=== PATIENT | female | born 1955 | race Caucasian/White ===

== ENCOUNTER 2020-04-05 08:34 | Outpatient (REF) | payer MEDICARE, SELFPAY ==
[2020-04-05 11:32] LABS: Glucose Urine UA NEG (NEG); Leukocyte Esterase Urine NEG (NEG); Nitrite Urine NEG (NEG); Specific Gravity - Urine 1.025 (1.005-1.025); Urine Blood TRACE (NEG); Urine Ketones NEG (NEG); Urine Protein NEG (NEG-TRACE)
[2020-04-05 11:33] LABS: Hematocrit 45.2 % (37-47); Hemoglobin 14.8 g/dl (12.0-16.0); Mean Corpuscular HGB Conc 32.7 g/dl (31.0-35.0); Mean Corpuscular Hemoglobin 31.7 pg (27.0-33.0); Mean Corpuscular Volume 96.8 fL (80-98); Mean Platelet Volume 11.2 fL (9.4-12.3); Platelet Count 275 X10*3/uL (160-400); Red Blood Count 4.67 X10*6/uL (4.20-5.50); Red Cell Distribution Width 13.1 % (11.0-16.0); White Blood Count 3.6 X10*3/uL (4.8-10.8)
[2020-04-05 11:34] LABS: Appearance Urine CLEAR; Color Urine YELLOW
[2020-04-05 11:45] LABS: Bacteria Urine TRACE /LPF; Mucus Urine 1+ /LPF; Squamous Epithelial Cell Urine 2+ /LPF
[2020-04-05 12:13] LABS: Alanine Aminotransferase 19 U/L (0-31); Albumin Level 4.3 g/dL (3.5-5.0); Alkaline Phosphatase 98 U/L (39-117); Anion Gap 13 (12-20); Aspartate Amino Transferase 19 U/L (5-31); Bilirubin Total 0.6 mg/dL (0.0-1.0); Blood Urea Nitrogen 14 mg/dL (9-16); Calcium 8.9 mg/dL (8.4-10.2); Carbon Dioxide 25 mmol/L (22-29); Chloride 107 mmol/L (96-108); Cholesterol 216 mg/dL; Estimated Glomerular Filt Rate > 60; Glucose Fasting 81 mg/dL (60-99); HDL Cholesterol 68 mg/dL; LDL Cholesterol Calculated 135 mg/dl; Potassium 4.9 mmol/l (3.3-5.1); Sodium 140 mmol/L (135-145); Total Protein 6.5 g/dL (6.5-8.0); Triglycerides 65 mg/dL
[2020-04-05 12:42] LABS: Thyroid Stimulating Hormone 1.19 uIU/mL (0.32-4.0)
== END 2020-04-05 08:35 | disposition home or self-care (01) ==
LOC: HO.HMGCLDS 08:34
PROVIDERS: PCP Internal Medicine; Visit Provider Internal Medicine
DX: E78.5 Hyperlipidemia, unspecified (principal); I10 Essential (primary) hypertension
CPT/HCPCS: 36415; 80053; 80061; 81001; 84443; 85027

== ENCOUNTER 2021-03-30 06:19 | Outpatient (REF) | payer MEDICARE, SELFPAY ==
[2021-03-30 11:28] LABS: Hematocrit 44.7 % (37.0-47.0); Mean Corpuscular HGB Conc 33.6 g/dl (31.0-35.0); Mean Corpuscular Hemoglobin 31.9 pg (27.0-33.0); Mean Corpuscular Volume 95.1 fL (80.0-98.0); Mean Platelet Volume 12.3 fL (9.4-12.3); Platelet Count 256 X10*3/uL (160-400); Red Cell Distribution Width 12.3 % (11.0-16.0); White Blood Count 3.3 X10*3/uL (4.8-10.8)
[2021-03-30 11:55] LABS: Alanine Aminotransferase 17 U/L (0-31); Albumin Level 4.4 g/dL (3.5-5.0); Alkaline Phosphatase 100 U/L (39-117); Anion Gap 11 (12-20); Aspartate Amino Transferase 17 U/L (5-31); Bilirubin Total 0.8 mg/dL (0.0-1.0); Blood Urea Nitrogen 13 mg/dL (9-16); Carbon Dioxide 26 mmol/L (22-29); Chloride 110 mmol/L (96-108); Cholesterol 211 mg/dL; Estimated Glomerular Filt Rate > 60; Glucose Fasting 93 mg/dL (60-99); HDL Cholesterol 56 mg/dL; LDL Cholesterol Calculated 139 mg/dl; Potassium 4.1 mmol/L (3.3-5.1); Sodium 143 mmol/L (135-145); Total Protein 6.5 g/dL (6.5-8.0); Triglycerides 83 mg/dL
[2021-03-30 12:03] LABS: TSH reflex Free T4 2.43 uIU/mL (0.32-4.0); Vitamin D 25-OH Total 39.2 ng/mL (>30)
== END 2021-03-30 06:20 | disposition home or self-care (01) ==
LOC: HO.HMGCLDS 06:19
PROVIDERS: PCP Internal Medicine; Visit Provider Internal Medicine
DX: Z00.00 Encounter for general adult medical examination without abnormal findings (principal); E78.5 Hyperlipidemia, unspecified; I10 Essential (primary) hypertension
CPT/HCPCS: 36415; 80053; 80061; 82306; 84443; 85027

== ENCOUNTER 2021-12-25 07:48 | Outpatient (REF) | payer MEDICARE, SELFPAY ==
[2021-12-25 11:50] LABS: Alanine Aminotransferase 108 U/L (0-31); Albumin Level 4.1 g/dL (3.5-5.0); Alkaline Phosphatase 124 U/L (39-117); Anion Gap 15 (12-20); Aspartate Amino Transferase 36 U/L (5-31); Bilirubin Total 0.5 mg/dL (0.0-1.0); Blood Urea Nitrogen 12 mg/dL (9-16); Calcium 9.2 mg/dL (8.4-10.2); Carbon Dioxide 24 mmol/L (22-29); Chloride 111 mmol/L (96-108); Cholesterol 180 mg/dL; Estimated Glomerular Filt Rate > 60; Glucose Fasting 96 mg/dL (60-99); HDL Cholesterol 62 mg/dL; LDL Cholesterol Calculated 100 mg/dl; Potassium 4.7 mmol/L (3.3-5.1); Sodium 145 mmol/L (135-145); Total Protein 6.5 g/dL (6.5-8.0); Triglycerides 91 mg/dL
== END 2021-12-25 07:49 | disposition home or self-care (01) ==
LOC: HO.HMGCLDS 07:48
PROVIDERS: PCP Internal Medicine; Visit Provider Internal Medicine
DX: Z00.00 Encounter for general adult medical examination without abnormal findings (principal); E78.5 Hyperlipidemia, unspecified; I10 Essential (primary) hypertension
CPT/HCPCS: 36415; 80053; 80061

== ENCOUNTER 2023-03-08 10:29 | Outpatient (AMB) | payer MEDICARE, SELFPAY ==
[2023-03-08 10:31] VITALS: BP 130/92; PULSE 63; O2SAT 96; BMI 24.5
--- NOTE | 2023-03-08 10:31 | A.OFFPC_ITS ---
Vital Signs 03/08/23 10:31 Height 5 ft 4 in Weight 143 lb BMI 24.5 BP 130/92 H Blood Pressure Location Lt brachial Position Sitting Pulse 63 Pulse Source Pulse Oximeter Pulse Oximetry (%) 96 Oxygen Delivery Method Room Air Intake Visit Reasons: PE. Intake Note: Pt is here today for PE. Allergies doxycycline Allergy (Unknown, Verified 03/08/23 10:35) Rash egg Allergy (Unknown, Verified 03/08/23 10:35) very ill erythromycin base Allergy (Unknown, Verified 03/08/23 10:35) Rash levofloxacin [Levaquin] Allergy (Unknown, Verified 03/08/23 10:35) swelling in hands penicillin V Allergy (Unknown, Verified 03/08/23 10:35) Rash tetracycline Allergy (Unknown, Verified 03/08/23 10:35) Rash amlodipine Adverse Reaction (Intermediate, Verified 03/08/23 10:35) lightheadness, swelling lisinopril Adverse Reaction (Intermediate, Verified 03/08/23 10:35) lightheadness pravastatin Adverse Reaction (Intermediate, Verified 03/08/23 10:35) myalgia ezetimibe [From Zetia] Adverse Reaction (Verified 03/08/23 10:50) lightheaded Medication List - Last Reconciled 03/08/23 by Celeste Mary MD estradiol 0.01%(0.1mg/gram) grams vaginal olmesartan 10 mg (2 x 5 mg) PO DAILY Tobacco use date assessed: 03/08/23 Fall risk assessment: No Falls in past year Last assessed Fall Risk: 03/08/23 Dental Screening Dental Screen Date: 03/08/23 Did you have a dental visit in the last 12 months?: Yes Did you have a dental problem in the last 6 months where you did not have access to dental care?: No Was dental information given to patient?: Patient has dentist HPI PE. HPI Details Patient presents for physical. [facility] Medical History (Updated 03/08/23 @ 13:13 by Celeste Mary MD) Postmenopausal Annual physical exam Back pain Colonoscopy refused Endometrial cancer Hx of mammogram Hyperlipidemia Hypertension Surgical History History of lumpectomy Family History Brother HTN (hypertension) Sister HTN (hypertension) Father HTN (hypertension) Mother HTN (hypertension) Social History Housing: House Alcohol intake: current Alcohol intake frequency: a few times a month Patient Tobacco Use Status: Never used Tobacco e-Cigarette/Vaping Use: Never Used Second Hand Smoke Exposure: No Current occupational status: employed Cognitive needs: No Hearing needs: No Vision needs: No Questionnaire PHQ-9 Over the last 2 weeks, how often have you been bothered by any of the following problems? 1. Little interest or pleasure in doing things: not at all 2. Feeling down, depressed, or hopeless: not at all 3. Trouble falling or staying asleep, or sleeping too much: not at all 4. Feeling tired or having little energy: not at all 5. Poor appetite or overeating: not at all 6. Feeling bad about yourself - or that you are a failure or have let yourself or your family down: not at all 7. Trouble concentrating on things, such as reading the newspaper or watching television: not at all 8. Moving or speaking so slowly that other people could have noticed. Or the opposite - being so fidgety or restless that you have been moving around a lot more than usual: not at all 9. Thoughts that you would be better off or of hurting yourself in some way: not at all Total score: 0 Depression Screening Interpretation: Negative Depression Screening Done: Yes Source: Developed by Drs. Khoa Diaz, Linda Ferguson, Teo Seo and colleagues, with an educational santana from [employer]. Thrive Questionnaire Date Thrive assessed: 03/08/23 I am a: Patient What is your living situation today?: I have a steady place to live Within the past 12 months, did the food you bought not last and you didn't have the money to get more?: Never true Within the past 12 months, did you worry whether your food would run out before you got money to buy more?: Never true Do you have trouble paying for medicines?: No Do you have trouble getting transportation to medical appointments?: No Do you have trouble paying your heating and electricity bill?: No Do you have trouble taking care of your child, family member or friend?: No Do you have trouble with day-to-day activities such as bathing, preparing meals, shopping, managing finances, etc.?: No Are you currently unemployed and looking for a job?: No Are you interested in more education?: No Please select the resources that you would like help with: None Currently or been in a relationship where the following occur: no concerns reported AUDIT C Alcohol Use Questionnaire (AUDIT-C) 1. How often do you have a drink containing alcohol?: Monthly or less 2. How many drinks containing alcohol do you have on a typical day when you are drinking?: 1 or 2 3. How often do you have six or more drinks on one occasion?: Never Total Score: 1 JUDITH-7 AMB Questionnaire JUDITH-7 Date JUDITH - 7 assessed: 03/08/23 Feeling nervous, anxious, or on edge: 0 = Not at all Not being able to stop or control worryin = Not at all Worrying too much about different things: 0 = Not at all Trouble relaxin = Not at all Being so restless that it is hard to sit still: 0 = Not at all Becoming easily annoyed or irritable: 0 = Not at all Feeling afraid as if something awful might happen: 0 = Not at all Total JUDITH-7 score (0-4 normal; 5-9 mild; 10-14 moderate; 15-21 severe): 0 Source: Developed by Drs. Khoa Diaz, Linda Ferguson, Teo Seo and colleagues, with an educational santana from [employer]. Review of Systems Const All systems reviewed & are unremarkable except as noted in HPI and below Reports no additional complaints Eyes Reports no additional complaints ENT Reports no additional complaints Card Reports no additional complaints Resp Reports no additional complaints GI Reports no additional complaints Reports no additional complaints Physical exam (Primary Care) Vital Signs: Last Vital Signs Pulse 63 03/08/23 10:31 BP 146/92 H 03/08/23 10:31 Pulse Ox 96 03/08/23 10:31 Oxygen Delivery Method Room Air 03/08/23 10:31 BMI result Body Mass Index 24.5 Tobacco/Smoking Status: Tobacco use Status Tobacco use date assessed 03/08/23 03/08/23 10:39 Patient Tobacco Use Status Never used Tobacco 03/08/23 10:39 e-Cigarette/Vaping Use Never Used 03/08/23 10:39 PHQ-9: PHQ-9 Score PHQ-9: Total score 0 03/08/23 10:52 Depression Screening Interpretation: Negative Thrive Assessment: Date of Thrive Assessment Date Thrive assessed 03/08/23 03/08/23 10:39 Currently or been in a relationship where the following occur: no concerns reported Const General: no acute distress HENMT Head: Yes normal to inspection Ears: hearing grossly normal bilaterally Face and sinus: Yes normal facial exam Throat: Yes posterior oropharynx normal Eyes General: appearance normal, both eyes and all related structures Neck Neck: Yes supple Resp Effort & Inspection: normal respiratory effort Auscultation: clear to auscultation bilaterally Cardio Rhythm: regular rhythm Heart sounds: S1 normal heart sound present and S2 normal heart sound present GI Inspection: Yes normal to inspection Palpation (GI): Soft to palpation Percussion: Yes normal to percussion Auscultation: normal bowel sounds Assessment and Plan Assessment & Plan (1) Annual physical exam: Code(s): Z00.00 - Encounter for general adult medical examination without abnormal findings Plan: Well-balanced diet regular physical activity discussed with the patient. She will return for fasting blood work (2) Hypertension: Code(s): I10 - Essential (primary) hypertension Plan: Increase olmesartan to 15 mg a day, low-sodium diet regular physical activity discussed with the patient. Follow-up in 2 months (3) Hyperlipidemia: Comment: Intolerant to pravastatin and Zetia Code(s): E78.5 - Hyperlipidemia, unspecified Plan: Low-cholesterol diet discussed with the patient. she will return for fasting blood work before her next visit Orders: Orders Lipid Panel Today E78.5 - Hyperlipidemia, unspecified, I10 - Essential (primary) hypertension, Z00.00 - Encounter for general adult medical examination without abnormal findings Complete Blood Count Auto Diff Today E78.5 - Hyperlipidemia, unspecified, I10 - Essential (primary) hypertension, Z00.00 - Encounter for general adult medical examination without abnormal findings Vitamin D 25-OH Total Today E78.5 - Hyperlipidemia, unspecified, I10 - Essential (primary) hypertension, Z00.00 - Encounter for general adult medical examination without abnormal findings Comprehensive [place]. Panel Fast Today E78.5 - Hyperlipidemia, unspecified, I10 - Essential (primary) hypertension, Z00.00 - Encounter for general adult medical examination without abnormal findings TSH reflex Free T4 Today E78.5 - Hyperlipidemia, unspecified, I10 - Essential (primary) hypertension, Z00.00 - Encounter for general adult medical examination without abnormal findings Referrals Cologuard Test Z12.11 - Encounter for screening for malignant neoplasm of colon, Z12.12 - Encounter for screening for malignant neoplasm of rectum Medications: Changed From olmesartan Schedule next PCP appt for future refills 10 mg (2 x 5 mg) PO DAILY 180 tabs 0RF To olmesartan Schedule next PCP appt for future refills 15 mg (3 x 5 mg) PO DAILY 270 tabs 0RF Coding Level of Care Code Est Pt Prev Care >65y(18118) Diagnoses Annual physical exam Z00.00 Hypertension I10 Hyperlipidemia E78.5
== END 2023-03-08 11:08 | disposition home or self-care (01) ==
PROVIDERS: PCP Internal Medicine; Visit Provider Internal Medicine
DX: Z00.00 Encounter for general adult medical examination without abnormal findings (principal); I10 Essential (primary) hypertension; E78.5 Hyperlipidemia, unspecified
CPT/HCPCS: 99214; 99397

== ENCOUNTER 2023-05-08 09:06 | Outpatient (REF) | payer MEDICARE, SELFPAY ==
[2023-05-08 11:24] LABS: MANUAL DIFF FLAG NO
[2023-05-08 11:35] LABS: Eosinophils Absolute Auto 0.1 X10*3/uL (0.0-0.4); Eosinophils Percent Auto 2.6 % (0-4); Hematocrit 43.9 % (37.0-47.0); Hemoglobin 14.6 g/dl (12.0-16.0); Imm Gran Abs Auto 0.01 X10*3/uL (0.00-0.03); Imm Gran Pct Auto 0.3 % (0.0-0.4); Lymphocytes Absolute Auto 1.1 X10*3/uL (1.2-4.9); Lymphocytes Percent Auto 28.5 % (20-40); Mean Corpuscular HGB Conc 33.3 g/dl (31.0-35.0); Mean Corpuscular Hemoglobin 31.4 pg (27.0-33.0); Mean Corpuscular Volume 94.4 fL (80.0-98.0); Mean Platelet Volume 11.2 fL (9.4-12.3); Monocytes Absolute Auto 0.4 X10*3/uL (0.1-1.2); Monocytes Percent Auto 9.9 % (2-11); Neutrophils Absolute Auto 2.2 x10*3/uL (2.0-8.3); Neutrophils Percent Auto 57.7 % (45-73); Platelet Count 245 X10*3/uL (160-400); Red Blood Count 4.65 X10*6/uL (4.20-5.50); Red Cell Distribution Width 12.5 % (11.0-16.0); White Blood Count 3.8 X10*3/uL (4.8-10.8)
[2023-05-08 11:57] LABS: Alanine Aminotransferase 20 U/L (0-31); Albumin Level 4.2 g/dL (3.5-5.0); Alkaline Phosphatase 88 U/L (39-117); Anion Gap 13 (12-20); Aspartate Amino Transferase 18 U/L (5-31); Bilirubin Total 0.9 mg/dL (0.0-1.0); Blood Urea Nitrogen 13 mg/dL (9-16); Calcium 9.3 mg/dL (8.4-10.2); Carbon Dioxide 24 mmol/L (22-29); Chloride 108 mmol/L (96-108); Cholesterol 225 mg/dL (<200); Estimated Glomerular Filt Rate > 60; Glucose Fasting 92 mg/dL (60-99); HDL Cholesterol 61 mg/dL (>40); LDL Cholesterol Calculated 149 mg/dL (<100); Potassium 4.2 mmol/L (3.3-5.1); Sodium 141 mmol/L (135-145); Total Protein 6.7 g/dL (6.5-8.0); Triglycerides 79 mg/dL (<150)
[2023-05-08 12:22] LABS: Vitamin D 25-OH Total 41.8 ng/mL (>30)
== END 2023-05-08 09:07 | disposition home or self-care (01) ==
LOC: HO.HMGCLDS 09:06
PROVIDERS: PCP Internal Medicine; Visit Provider Internal Medicine
DX: Z00.00 Encounter for general adult medical examination without abnormal findings (principal); I10 Essential (primary) hypertension; E78.5 Hyperlipidemia, unspecified
CPT/HCPCS: 36415; 80053; 80061; 82306; 84443; 85025

== ENCOUNTER 2023-05-15 10:02 | Outpatient (AMB) | payer MEDICARE, SELFPAY ==
--- NOTE | 2023-05-15 10:07 | MHC.PC.OV ---
Vital Signs 05/15/23 10:08 Height 5 ft 4 in Weight 144 lb BMI 24.7 BP 122/94 H Blood Pressure Location Lt brachial Position Sitting Pulse 65 Pulse Source Pulse Oximeter Pulse Oximetry (%) 97 Oxygen Delivery Method Room Air Intake Visit Reasons: 2M follow up Intake Note: Pt is here today for 2 months follow up visit on labs. Allergies doxycycline Allergy (Unknown, Verified 05/15/23 10:10) Rash egg Allergy (Unknown, Verified 05/15/23 10:10) very ill erythromycin base Allergy (Unknown, Verified 05/15/23 10:10) Rash levofloxacin [Levaquin] Allergy (Unknown, Verified 05/15/23 10:10) swelling in hands penicillin V Allergy (Unknown, Verified 05/15/23 10:10) Rash tetracycline Allergy (Unknown, Verified 05/15/23 10:10) Rash amlodipine Adverse Reaction (Intermediate, Verified 05/15/23 10:10) lightheadness, swelling lisinopril Adverse Reaction (Intermediate, Verified 05/15/23 10:10) lightheadness pravastatin Adverse Reaction (Intermediate, Verified 05/15/23 10:10) myalgia ezetimibe [From Zetia] Adverse Reaction (Verified 05/15/23 10:10) lightheaded Medication List - Last Reconciled 05/15/23 by Celeste Mary MD estradiol 0.01%(0.1mg/gram) grams vaginal olmesartan 20 mg PO DAILY Tobacco use date assessed: 03/08/23 HPI 2M follow up HPI Details Patient presents for the follow-up of hypertension and diet-controlled hyperlipidemia. Patient hikes several times a week in [facility] Medical History Postmenopausal Annual physical exam Back pain Colonoscopy refused Endometrial cancer Hx of mammogram Hyperlipidemia Hypertension Surgical History History of lumpectomy Family History Brother HTN (hypertension) Sister HTN (hypertension) Father HTN (hypertension) Mother HTN (hypertension) Social History Housing: House Alcohol intake: current Alcohol intake frequency: a few times a month Patient Tobacco Use Status: Never used Tobacco e-Cigarette/Vaping Use: Never Used Second Hand Smoke Exposure: No Current occupational status: employed Cognitive needs: No Hearing needs: No Vision needs: No Questionnaire Thrive Questionnaire Date Thrive assessed: 03/08/23 JUDITH-7 AMB Questionnaire JUDITH-7 Date JUDITH - 7 assessed: 03/08/23 Source: Developed by Drs. Khoa Diaz, Linda Ferguson, Teo Seo and colleagues, with an educational santana from [employer]. Review of Systems Const All systems reviewed & are unremarkable except as noted in HPI and below Eyes Reports no additional complaints ENT Reports no additional complaints Card Reports no additional complaints Physical exam (Primary Care) Vital Signs: Last Vital Signs Pulse 65 05/15/23 10:08 BP 122/94 H 05/15/23 10:08 Pulse Ox 97 05/15/23 10:08 Oxygen Delivery Method Room Air 05/15/23 10:08 BMI result Body Mass Index 24.7 Tobacco/Smoking Status: Tobacco use Status Tobacco use date assessed 03/08/23 05/15/23 10:11 Patient Tobacco Use Status Never used Tobacco 05/15/23 10:11 e-Cigarette/Vaping Use Never Used 05/15/23 10:11 Thrive Assessment: Date of Thrive Assessment Date Thrive assessed 03/08/23 05/15/23 10:11 Const General: no acute distress HENMT Head: Yes normal to inspection Face and sinus: Yes normal facial exam Throat: Yes posterior oropharynx normal Neck Neck: Yes supple Resp Effort & Inspection: normal respiratory effort Auscultation: clear to auscultation bilaterally Cardio Rhythm: regular rhythm Heart sounds: S1 normal heart sound present and S2 normal heart sound present GI Inspection: Yes normal to inspection Palpation (GI): Soft to palpation Percussion: Yes normal to percussion Assessment and Plan Assessment & Plan (1) Hypertension: Code(s): I10 - Essential (primary) hypertension Plan: Increase olmesartan to 20 mg a day, continue well-balanced diet regular exercise and follow-up in 3 months with a fasting labs before (2) Hyperlipidemia: Comment: Intolerant to pravastatin and Zetia Code(s): E78.5 - Hyperlipidemia, unspecified Plan: Continue low-cholesterol diet start fish oil supplement Medications: New olmesartan 20 mg PO DAILY 90 tabs 0RF Discontinued olmesartan Schedule next PCP appt for future refills Discontinued Reason: Doctor's Order 15 mg (3 x 5 mg) PO DAILY 270 tabs 0RF Coding Level of Care Code Est Pt Level 3 (59132) Diagnoses Hypertension I10 Hyperlipidemia E78.5
[2023-05-15 10:08] VITALS: BP 122/94; PULSE 65; O2SAT 97; BMI 24.7
== END 2023-05-15 11:06 | disposition home or self-care (01) ==
PROVIDERS: PCP Internal Medicine; Visit Provider Internal Medicine
DX: I10 Essential (primary) hypertension (principal); E78.5 Hyperlipidemia, unspecified
CPT/HCPCS: 99213

== ENCOUNTER 2024-04-13 07:17 | Outpatient (REF) | payer MEDICARE, SELFPAY ==
[2024-04-13 10:02] LABS: MANUAL DIFF FLAG NO
[2024-04-13 10:21] LABS: Eosinophils Absolute Auto 0.1 X10*3/uL (0.0-0.4); Eosinophils Percent Auto 3.6 % (0-4); Hematocrit 44.2 % (37.0-47.0); Hemoglobin 14.9 g/dl (12.0-16.0); Imm Gran Abs Auto 0.01 X10*3/uL (0.00-0.03); Imm Gran Pct Auto 0.3 % (0.0-0.4); Mean Corpuscular HGB Conc 33.7 g/dl (31.0-35.0); Mean Corpuscular Volume 95.1 fL (80.0-98.0); Mean Platelet Volume 10.7 fL (9.4-12.3); Monocytes Absolute Auto 0.3 X10*3/uL (0.1-1.2); Monocytes Percent Auto 9.4 % (2-11); Neutrophils Absolute Auto 1.6 x10*3/uL (2.0-8.3); Neutrophils Percent Auto 52.7 % (45-73); Platelet Count 283 X10*3/uL (160-400); Red Blood Count 4.65 X10*6/uL (4.20-5.50); Red Cell Distribution Width 12.3 % (11.0-16.0); White Blood Count 3.1 X10*3/uL (4.8-10.8)
[2024-04-13 10:49] LABS: Alanine Aminotransferase 47 U/L (0-31); Albumin Level 4.1 g/dL (3.5-5.0); Alkaline Phosphatase 122 U/L (39-117); Anion Gap 10 (12-20); Aspartate Amino Transferase 26 U/L (5-31); Bilirubin Total 0.6 mg/dL (0.0-1.0); Blood Urea Nitrogen 13 mg/dL (9-16); Calcium 9.5 mg/dL (8.4-10.2); Carbon Dioxide 25 mmol/L (22-29); Chloride 110 mmol/L (96-108); Cholesterol 205 mg/dL (<200); Estimated Glomerular Filt Rate > 60; Glucose Fasting 92 mg/dL (60-99); HDL Cholesterol 49 mg/dL (>40); LDL Cholesterol Calculated 141 mg/dL (<100); Potassium 4.3 mmol/L (3.3-5.1); Sodium 141 mmol/L (135-145); Total Protein 6.6 g/dL (6.5-8.0); Triglycerides 78 mg/dL (<150)
== END 2024-04-13 07:18 | disposition home or self-care (01) ==
LOC: HO.HMGCLDS 07:17
PROVIDERS: PCP Internal Medicine; Visit Provider Internal Medicine
DX: I10 Essential (primary) hypertension (principal); E78.5 Hyperlipidemia, unspecified
CPT/HCPCS: 36415; 80053; 80061; 85025

== ENCOUNTER 2024-04-14 07:29 | Outpatient (AMB) | payer MEDICARE, SELFPAY ==
--- NOTE | 2024-04-14 07:44 | AM.OFFVISMDC ---
Intake Vital Signs 04/14/24 07:46 Height 5 ft 4 in Weight 144 lb BMI 24.7 BP 135/88 Blood Pressure Location Lt brachial Position Sitting Pulse 54 Pulse Source Pulse Oximeter Intake Visit Reasons: SWV G0439/ INS DOES NOT COVER PE Intake Note: Pt is here today for her SWV Allergies doxycycline Allergy (Unknown, Verified 04/14/24 07:47) Rash egg Allergy (Unknown, Verified 04/14/24 07:47) very ill erythromycin base Allergy (Unknown, Verified 04/14/24 07:47) Rash levofloxacin [Levaquin] Allergy (Unknown, Verified 04/14/24 07:47) swelling in hands penicillin V Allergy (Unknown, Verified 04/14/24 07:47) Rash tetracycline Allergy (Unknown, Verified 04/14/24 07:47) Rash amlodipine Adverse Reaction (Intermediate, Verified 04/14/24 07:47) lightheadness, swelling lisinopril Adverse Reaction (Intermediate, Verified 04/14/24 07:47) lightheadness pravastatin Adverse Reaction (Intermediate, Verified 04/14/24 07:47) myalgia ezetimibe [From Zetia] Adverse Reaction (Verified 04/14/24 07:47) lightheaded Medication List - Last Reconciled 04/14/24 by Celeste Mary MD olmesartan 15 mg (3 x 5 mg) PO DAILY HPI SWV G0439/ INS DOES NOT COVER PE HPI Details Initiated the conversation about Advanced Directives. Advanced Directives help? patients prepare for current and future decisions about their medical treatment? and place of care. Discussed with patient that it is a process where a patients? current condition and prognosis are reviewed, their wishes for information? regarding their illness are elicited, and likely medical dilemmas are presented? and options discussed. The form can be amended as needed, reviewed yearly and? make changes as needed IPPE/AWV ? year old presents? for her ? Annual? Wellness Visit, initial visit.? Medical / Social History Reviewed? Past Medical History ?Yes? . ? [place]? of Care / Care Team list updated ?Yes . ? Surgical/Hospitalization? History ?Yes . ? Current Medications? (including OTC and supplements) ?Yes . ? Family History ?Yes? . ? Tobacco? Control form ?Yes . ? AUDIT-C (Alcohol use) form? ?Yes . ? Illicit drug use in Social? History ?Yes . ? Current diagnosis of? depression? ?No ? Appropriate PHQ2/PHQ9? completed ?Yes . ? Data entered by ?Medical? Director Of [employer] and reviewed by provider ? Fall Risk ? Fall? History? Have you had any falls with? injury in the past year? ?No . ? Have you had two or more? falls in the past year? ?No . ? Fall Risk Assessment: ?No? falls in the past year . ? HRA filled out by? the patient, reviewed by Provider and scanned. ? IPPE/AWV ? Balance? [place]? ?Yes . ? Tandem? walk ?Yes . ? Walk and? Turn ?Yes . ? Rise from? sit to stand ?Yes . ?Vision? Corrective? lens ?Yes ? Vision? screen ? Up-to-date, has an appointment [] for vision? screening and glaucoma screening ?Hearing? Whisper? test ?pass .? Initiated the conversation about Advanced Directives. Advanced Directives help? patients prepare for current and future decisions about their medical treatment? and place of care. Discussed with patient that it is a process where a patients? current condition and prognosis are reviewed, their wishes for information? regarding their illness are elicited, and likely medical dilemmas are presented? and options discussed. The form can be amended as needed, reviewed yearly and? make changes as needed Written? Plan?Completed. See Patient? Documents. [facility] Medical History (Updated 04/14/24 @ 08:01 by Celeste Mary MD) Postmenopausal Annual physical exam Back pain Colonoscopy refused Endometrial cancer Hx of mammogram Hyperlipidemia Hypertension Surgical History History of lumpectomy Family History Brother HTN (hypertension) Sister HTN (hypertension) Father HTN (hypertension) Mother HTN (hypertension) Social History Housing: House Alcohol intake: current Alcohol intake frequency: a few times a month Patient Tobacco Use Status: Never used Tobacco e-Cigarette/Vaping Use: Never Used Second Hand Smoke Exposure: No Current occupational status: employed Cognitive needs: No Hearing needs: No Vision needs: No Questionnaire Medicare Wellness Checkup What [age] 65-69 What gender do you identify with?: female During the past 4 weeks, how much have you been bothered by emotional problems such as feeling anxious, depressed, irritable, sad or downhearted, and blue?: not at all During the past 4 weeks, has your physical & emotional health limited your social activities with family, friends, neighbors, or groups?: not at all During the past 4 weeks, how much bodily pain have you generally had?: no pain During the past 4 weeks, was someone available to help you if you needed & wanted help?: yes, as much as I wanted During the past 4 weeks, what was the hardest physical activity you could do for at least 2 minutes?: heavy Can you get to places out of walking distance without help? (For eg., can you travel alone on buses, taxis or drive your car?): Yes Can you go shopping for groceries or clothes without someone's help?: Yes Can you prepare your own meals?: Yes Can you do your housework without help?: Yes Because of any health problems, do you need the help of another person with your personal care needs such as eating, bathing, dressing or getting around the house?: No Can you handle your own money without help?: Yes During the past 4 weeks, how would you rate your health in general?: excellent During the past 4 weeks how have things been going for you?: very well; could hardly better Are you having difficulties driving your car?: no Do you always fasten your seat belt when you are in a car?: yes, usually During past 4 weeks, have you been bothered by the following: never: Falling or dizzy when standing up, Sexual problems?, Trouble eating well?, Teeth or denture problems?, Problems using the telephone? and Tiredness or fatigue? Have you fallen 2 or more times in the past year?: No Are you afraid of falling?: No Are you a smoker?: no During the past 4 weeks, how many drinks of wine, beer, or other alcoholic beverages did you have?: 2-5 drinks per week Do you exercise for about 20 minutes 3 or more times a week?: yes, most of the time Have you been given information to help with the following?: no: Hazards in your house that might hurt you? and no: Keeping track of your medications? How often do you have trouble taking medicines the way you have been told to take them?: I always take medicine as prescribed How confident are you that you can control & manage most of your health problems?: very confident What is your race?: White Mini Mental State Exam (MMSE) Orientation What is the (year) (season) (date) (day) (month)?: year, season, date, day and month Where are we (state) (county) (town or city) (hospital) (floor)?: state, county, town or city, hospital/clinic and floor Registration Name of 3 unrelated objects clearly and slowly, then ask patient to repeat all 3 of them. (1st repeat determines score. Make sure they can repeat all three): object 1, object 2 and object 3 Attention & Calculation (CHOOSE ONE) Spell WORLD backwards (DLROW): 5 letters Recall Ask patient to repeat the 3 items from question #3.: object 1, object 2 and object 3 Language Show patient a wristwatch & ask what it is. Repeat for pencil.: watch and pencil Ask the patient to repeat the phrase 'No ifs, ands, or buts' after you.: correct Ask the patient to 'take a piece of paper with their right hand' 'fold paper in half' 'place paper on floor': take paper in right hand, fold paper in half and place paper on floor Print the sentence 'CLOSE YOUR EYES' on a piece. If patient actually closes eyes then score.: followed written direction Give patient a blank piece of paper & ask to write a sentence. Score if it contains a noun & verb.: sentence contains subject and verb Score Score: 29 PHQ-9 Over the last 2 weeks, how often have you been bothered by any of the following problems? 1. Little interest or pleasure in doing things: not at all 2. Feeling down, depressed, or hopeless: not at all 3. Trouble falling or staying asleep, or sleeping too much: not at all 4. Feeling tired or having little energy: not at all 5. Poor appetite or overeating: not at all 6. Feeling bad about yourself - or that you are a failure or have let yourself or your family down: not at all 7. Trouble concentrating on things, such as reading the newspaper or watching television: not at all 8. Moving or speaking so slowly that other people could have noticed. Or the opposite - being so fidgety or restless that you have been moving around a lot more than usual: not at all 9. Thoughts that you would be better off or of hurting yourself in some way: not at all Total score: 0 Depression Screening Interpretation: Negative Depression Screening Done: Yes Source: Developed by Drs. Khoa Diaz, Linda Ferguson, Teo Seo and colleagues, with an educational santana from [email or web address]. Review of Systems Const All systems reviewed & are unremarkable except as noted in HPI and below Eyes Reports no additional complaints ENT Reports no additional complaints Card Reports no additional complaints Resp Reports no additional complaints GI Reports no additional complaints Reports no additional complaints Physical Exam Vital Signs: Last Vital Signs Pulse 54 04/14/24 07:46 BP 146/100 H 04/14/24 07:46 BMI result Body Mass Index 24.7 Const General: no acute distress HEENT Head: Yes normal to inspection Neck Neck: Yes no lymphadenopathy and Yes supple Resp Effort & Inspection: normal respiratory effort Auscultation: clear to auscultation bilaterally Cardio Rhythm: regular rhythm Heart sounds: S1 normal heart sound present and S2 normal heart sound present GI Inspection: Yes normal to inspection Palpation (GI): Soft to palpation Percussion: Yes normal to percussion Auscultation: normal bowel sounds Extrem General: Yes no clubbing, cyanosis or edema Assessment & Plan Assessment & Plan (1) Elevated LFTs: Code(s): R79.89 - Other specified abnormal findings of blood chemistry Plan: Cutting down on alcohol intake avoiding NSAIDs and simple carbohydrates discussed with the patient. obtain liver ultrasound (2) Colonoscopy refused: Comment: cologuard negative 05/2019, 03/2023 Code(s): Z53.20 - Procedure and treatment not carried out because of patient's decision for unspecified reasons Plan: Negative Cologuard (3) Hypertension: Code(s): I10 - Essential (primary) hypertension Plan: Blood pressure still elevated. Amlodipine 2.5 mg will be combined with 10 mg of olmesartan. Patient will follow-up in 1 month (4) Hyperlipidemia: Comment: Intolerant to pravastatin and Zetia Code(s): E78.5 - Hyperlipidemia, unspecified Plan: Continue low-cholesterol diet (5) Annual physical exam: Code(s): Z00.00 - Encounter for general adult medical examination without abnormal findings Plan: Well-balanced diet regular physical activity discussed with the patient she is up-to-date with the mammogram Orders: Orders US abdomen limited Today R79.89 - Other specified abnormal findings of blood chemistry Medications: New amlodipine 2.5 mg PO DAILY 30 tabs 0RF Quality Reporting (2019) Depression/Bipolar (159/160/161/177) PHQ-9: Total score: 0 Coding Level of Care Code Medicare Subsequent (G0439) Diagnoses Elevated LFTs R79.89 Colonoscopy refused Z53.20 Hypertension I10 Hyperlipidemia E78.5 Annual physical exam Z00.00 CPT Codes Advance Care Planning - Advance Care Planning discussion: On file, no changes ([id number]) Advance Care Planning - Time spent: 1-15 minutes, on File ([id number]) Advance Care Planning Advance Care Planning discussion: On file, no changes Forms completed: Health Care Proxy Time spent: 1-15 minutes, on File Did not discuss due to Cultural/Spiritual beliefs: Yes
[2024-04-14 07:46] VITALS: BP 135/88; PULSE 54; BMI 24.7
== END 2024-04-14 08:36 | disposition home or self-care (01) ==
PROVIDERS: PCP Internal Medicine; Visit Provider Internal Medicine
DX: Z00.00 Encounter for general adult medical examination without abnormal findings (principal); R79.89 Other specified abnormal findings of blood chemistry; Z53.20 Procedure and treatment not carried out because of patient's decision for unspecified reasons; I10 Essential (primary) hypertension; E78.5 Hyperlipidemia, unspecified

== ENCOUNTER 2024-05-04 08:51 | Outpatient (REF) | payer MEDICARE, SELFPAY | END 2024-05-04 08:52 | disposition home or self-care (01) | LOC: HO.HMGCX 08:51 | PROVIDERS: PCP Internal Medicine; Visit Provider Internal Medicine | DX: R79.89 Other specified abnormal findings of blood chemistry (principal) | CPT/HCPCS: 76705 ==

== ENCOUNTER → 2024-05-04 08:55 | Outpatient (BNV) | payer MEDICARE, SELFPAY | PROVIDERS: PCP Internal Medicine; Visit Provider Radiology Diagnostic Radiology | DX: K80.20 Calculus of gallbladder without cholecystitis without obstruction (principal) | CPT/HCPCS: 76705 ==

== ENCOUNTER 2024-05-13 10:26 | Outpatient (AMB) | payer MEDICARE, SELFPAY ==
[2024-05-13 10:30] VITALS: BP 130/82; PULSE 67; O2SAT 98; BMI 24.9
--- NOTE | 2024-05-13 10:30 | A.OFFPC_ITS ---
Vital Signs 05/13/24 10:30 Height 5 ft 4 in Weight 145 lb BMI 24.9 BP 130/82 Blood Pressure Location Lt brachial Position Sitting Pulse 67 Pulse Source Pulse Oximeter Pulse Oximetry (%) 98 Oxygen Delivery Method Room Air Intake Visit Reasons: 1 month follow up Intake Note: Pt is here today for a follow up visit on BP. Pt states that she stopped taking the new BP medication. Allergies doxycycline Allergy (Unknown, Verified 05/13/24 10:31) Rash egg Allergy (Unknown, Verified 05/13/24 10:31) very ill erythromycin base Allergy (Unknown, Verified 05/13/24 10:31) Rash levofloxacin [Levaquin] Allergy (Unknown, Verified 05/13/24 10:31) swelling in hands penicillin V Allergy (Unknown, Verified 05/13/24 10:31) Rash tetracycline Allergy (Unknown, Verified 05/13/24 10:31) Rash amlodipine Adverse Reaction (Intermediate, Verified 05/13/24 10:31) lightheadness, swelling lisinopril Adverse Reaction (Intermediate, Verified 05/13/24 10:31) lightheadness pravastatin Adverse Reaction (Intermediate, Verified 05/13/24 10:31) myalgia ezetimibe [From Zetia] Adverse Reaction (Verified 05/13/24 10:31) lightheaded Medication List - Last Reconciled 05/13/24 by Celeste Mary MD olmesartan 15 mg (3 x 5 mg) PO DAILY Tobacco use date assessed: 05/13/24 Dental Screening Dental Screen Date: 03/08/23 HPI 1 month follow up HPI Details Pt presents for f/u HTN. Pt developed severe fatigue on Amlodipine which resolved after stopping medication. She has been following low- cholesterol diet for hyperlipidemia. [facility] Medical History Postmenopausal Annual physical exam Back pain Colonoscopy refused Endometrial cancer Hx of mammogram Hyperlipidemia Hypertension Surgical History History of lumpectomy Family History Brother HTN (hypertension) Sister HTN (hypertension) Father HTN (hypertension) Mother HTN (hypertension) Social History Housing: House Alcohol intake: current Alcohol intake frequency: a few times a month Patient Tobacco Use Status: Never used Tobacco e-Cigarette/Vaping Use: Never Used Second Hand Smoke Exposure: No Current occupational status: employed Cognitive needs: No Hearing needs: No Vision needs: No Questionnaire PHQ-9 Over the last 2 weeks, how often have you been bothered by any of the following problems? 1. Little interest or pleasure in doing things: nearly every day 2. Feeling down, depressed, or hopeless: not at all 3. Trouble falling or staying asleep, or sleeping too much: not at all 4. Feeling tired or having little energy: not at all 5. Poor appetite or overeating: not at all 6. Feeling bad about yourself - or that you are a failure or have let yourself or your family down: not at all 7. Trouble concentrating on things, such as reading the newspaper or watching television: not at all 8. Moving or speaking so slowly that other people could have noticed. Or the opposite - being so fidgety or restless that you have been moving around a lot more than usual: not at all 9. Thoughts that you would be better off or of hurting yourself in some way: not at all Total score: 3 Depression Screening Interpretation: Negative Depression Screening Done: Yes 34519 - PHQ-9 Billing: Yes Source: Developed by Drs. Khoa Diaz, Linda Ferguson, Teo Seo and colleagues, with an educational santana from [employer]. Thrive Questionnaire Date Thrive assessed: 03/08/23 I am a: Patient What is your living situation today?: I have a steady place to live Within the past 12 months, did the food you bought not last and you didn't have the money to get more?: Never true Within the past 12 months, did you worry whether your food would run out before you got money to buy more?: Never true Do you have trouble paying for medicines?: No Do you have trouble getting transportation to medical appointments?: No Do you have trouble paying your heating and electricity bill?: No Do you have trouble taking care of your child, family member or friend?: No Do you have trouble with day-to-day activities such as bathing, preparing meals, shopping, managing finances, etc.?: No Are you currently unemployed and looking for a job?: No Are you interested in more education?: No Please select the resources that you would like help with: None Currently or been in a relationship where the following occur: No concerns reported THRIVE Score: 0 AUDIT C Alcohol Use Questionnaire (AUDIT-C) 1. How often do you have a drink containing alcohol?: 2-4 times a month Total Score: 2 JUDITH-7 AMB Questionnaire JUDITH-7 Date JUDITH - 7 assessed: 03/08/23 Feeling nervous, anxious, or on edge: 0 = Not at all Not being able to stop or control worryin = Not at all Worrying too much about different things: 0 = Not at all Trouble relaxin = Not at all Being so restless that it is hard to sit still: 0 = Not at all Becoming easily annoyed or irritable: 0 = Not at all Feeling afraid as if something awful might happen: 0 = Not at all Total JUDITH-7 score (0-4 normal; 5-9 mild; 10-14 moderate; 15-21 severe): 0 Source: Developed by Drs. Khoa Diaz, Linda Ferguson, Teo Seo and colleagues, with an educational santana from [employer]. Review of Systems Const All systems reviewed & are unremarkable except as noted in HPI and below Eyes Reports no additional complaints ENT Reports no additional complaints Card Reports no additional complaints Resp Reports no additional complaints GI Reports no additional complaints Reports no additional complaints Physical exam (Primary Care) Vital Signs: Last Vital Signs Pulse 67 05/13/24 10:30 BP 130/82 05/13/24 10:30 Pulse Ox 98 05/13/24 10:30 Oxygen Delivery Method Room Air 05/13/24 10:30 BMI result Body Mass Index 24.9 Tobacco/Smoking Status: Tobacco use Status Tobacco use date assessed 05/13/24 05/13/24 10:35 Patient Tobacco Use Status Never used Tobacco 05/13/24 10:35 e-Cigarette/Vaping Use Never Used 05/13/24 10:31 PHQ-9: PHQ-9 Score PHQ-9: Total score 3 05/13/24 10:31 Depression Screening Interpretation: Negative Thrive Assessment: Date of Thrive Assessment Date Thrive assessed 03/08/23 05/13/24 10:31 Currently or been in a relationship where the following occur: No concerns reported Const General: no acute distress Resp Effort & Inspection: normal respiratory effort Auscultation: clear to auscultation bilaterally Cardio Rhythm: regular rhythm Heart sounds: S1 normal heart sound present and S2 normal heart sound present Coding Level of Care Code Est Pt Level 3 (49162) Diagnoses Hypertension I10 Hyperlipidemia E78.5 Elevated LFTs R79.89 Additional Codes PHQ-9 - 31669 - PHQ-9 Billing: Yes ([id number]) Assessment & Plan Assessment & Plan (1) Hypertension: Code(s): I10 - Essential (primary) hypertension Category: Medical Plan: Continue olmesartan low-sodium diet regular exercise (2) Hyperlipidemia: Comment: Intolerant to pravastatin and Zetia Code(s): E78.5 - Hyperlipidemia, unspecified Category: Medical Plan: Continue low-cholesterol diet (3) Elevated LFTs: Code(s): R79.89 - Other specified abnormal findings of blood chemistry Category: Medical Plan: Abdominal ultrasound results are pending, return in 5 months for follow-up Orders: Orders Comprehensive Mccormick. Panel Fast 5 Months E78.5 - Hyperlipidemia, unspecified, I10 - Essential (primary) hypertension, R79.89 - Other specified abnormal findings of blood chemistry Complete Blood Count Auto Diff 5 Months E78.5 - Hyperlipidemia, unspecified, I10 - Essential (primary) hypertension, R79.89 - Other specified abnormal findings of blood chemistry TSH reflex Free T4 5 Months E78.5 - Hyperlipidemia, unspecified, I10 - Essential (primary) hypertension, R79.89 - Other specified abnormal findings of blood chemistry Lipid Panel 5 Months E78.5 - Hyperlipidemia, unspecified, I10 - Essential (primary) hypertension, R79.89 - Other specified abnormal findings of blood chemistry Medications: Refilled olmesartan 15 mg (3 x 5 mg) PO DAILY 270 tabs 3RF Discontinued amlodipine Discontinued Reason: Doctor's Order 2.5 mg PO DAILY 30 tabs 0RF
== END 2024-05-13 11:25 | disposition home or self-care (01) ==
PROVIDERS: PCP Internal Medicine; Visit Provider Internal Medicine
DX: I10 Essential (primary) hypertension (principal); E78.5 Hyperlipidemia, unspecified; R79.89 Other specified abnormal findings of blood chemistry

== ENCOUNTER → 2024-05-13 10:26 | Outpatient (BNVA) | payer MEDICARE, SELFPAY | PROVIDERS: PCP Internal Medicine; Visit Provider Internal Medicine | DX: I10 Essential (primary) hypertension (principal); E78.5 Hyperlipidemia, unspecified; R79.89 Other specified abnormal findings of blood chemistry | CPT/HCPCS: 96127; 99212 ==

== ENCOUNTER → 2024-07-03 08:04 | Outpatient (REF) ==
--- OUTSIDE RECORDS SUMMARY | 2024-07-03 08:11 | XMS_ITS | Clinical Summary ---
Author Organization [facility] [employer] [facility] lin Address [address] [place] [address] Care Team Providers Care Melt Helper Name Role Phone Unavailable Primary Care Provider Unavailabl e Social History Tobacco Use Types Packs/Day Years Used Date Smoking Tobacco: Never Assessed Comments Unknown Sex and Gender Information Value Date Recorded Sex Assigned at Not on file Legal Sex Female 9:36 AM EDT Gender Identity Not on file Sexual Orientation Not on file Plan of Treatment Health Maintenance Due Date Last Done Comments Colorectal Cancer: COLONOSCO PY Screening every 10 yrs (or Modifier) 1955 Depression: Screening Annual ly using PHQ-2/9 in Adults 18 yrs or above (or HM Modifier)([facility]) 1972 Hepatitis C Virus Infection in Adolescents and Adults: Screening (or Modifier) ([facility]) 1972 SDOH Screening Reminder: Alyssia schultz for all adults ([facility]) 1972 Tobacco Smoking Cessation: i n Adults excluding Women: Behavioral and Pharmacotherapy Interventions ([facility]) 1972 DTaP/Tdap/Td Vaccines ([facility]) (1 - Tdap) 1973 Colorectal Cancer Screening 45 -75 Yrs (or HM Modifier ) 12/10/1999 Colorectal Cancer: FLEXIBLE SIGMOIDOSCOPY Screening every 5 yrs 12/10/1999 Colorectal Cancer: Fecal Imm unochemical Test (FIT) Annually [facility] 12/10/1999 Colorectal Cancer: High-sens itivity gFOBT Screening Annually [facility] 12/10/1999 Colorectal Cancer: Stool Col oguard Screening every 3 yrs 12/10/1999 Colorectal Cancer:CT Colonography Screening every 5 yr s 12/10/1999 Lipid Screening: Every 5 yrs for Women aged 45+ (or HM Modifier) ([facility]) 2000 Breast Cancer: Screening Alyssia schultz age 50-74 yrs (or HM Modifier)([facility]) 2004 Zoster/Shingles Vaccine Seri es Screening: Adults aged 18+ yrs (or HM Modifiers)([facility]) (1 of 2) 2004 Osteoporosis Screening to Pr event Fractures: Women aged 65 years+ ([facility]) 12/10/2019 Pneumococcal Vaccination Scr eening: Patients 65+ yrs of age ([facility]) (1 of 1 - PCV) 12/10/2019 Flu Vaccination: Ages 65+: Y early High Dose Recommended (or Modifier)([facility]) 12/26/2023 COVID-19 Vaccine Screening: Initial Series and Booster Status ([facility]) ( - 2023-25 season) 2024 RSV Vaccines (1 - 1-dose 75+ series) 2029 [employer] Not on file Insurance [place] [address] [place] MED[place] [facility]
--- OUTSIDE RECORDS SUMMARY | 2024-07-03 08:11 | XMS_ITS | Data Portability ---
Author Organization [facility], [facility] Address [address] [place] [address] Assessment No assessment recorded. Plan of Treatment Reminders Order Date Submit Date Provider Last Modified By Organization Details Last Modified Time Details Appointments None recorded. Lab ehrlichia chaffeensi s, igg+igm Ab, serum 2018 019 [facility], [address] [place] [address], [id number], 9 13:31:55 unlisted lab - ehrlichia chaffeensi s by PCR [address] [place] [address] Laboratory, [address] [place] [address], [address], 9 13:31:56 lyme disease DNA, serum [address] [place] [address] Laboratory, [address] [place] [address], [address], 9 13:31:56 lyme disease Ab, serum 2018 019 [facility], [address] [place] [address], [id number], 9 13:31:56 anaplasma phagocytop hilum DNA, qual, PCR, blood [address] [place] [address], [address] [place] [address], [address], 9 13:31:56 babesia microti Ab, qualitativ e, serum [address] [place] [address] Laboratory, [address] [place] [address], [address], 9 13:31:56 babesia microti DNA, blood 2018 [facility], [address] [place] [address], [id number], 9 13:31:56 parasite smear, blood 2018 [facility], [address] [place] [address], [address], 9 13:31:57 Referral None recorded. Procedures None recorded. Surgeries None recorded. Imaging None recorded. Medication Orders doxycyclin e hyclate 100 mg tablet 2018 INTERFACE [facility] [address], [address], 9 15:48:38 Patient TargetsNo targets recorded. Patient Instructions Encounter Date Encounter Id Patient Instructions Last Modified By Organization Details Last Modified Time 11/25/2018 [id number] You were seen today for fatigue, muscle aches, joint aches, and a rash on your right shoulder, which together are highly suggestive of lyme disease. We will therefore treat you for lyme disease while we send lab tests for tick-borne diseases, which can take up to a week to get back. When we get the results, we will give you a call. Please take doxycycline 100 mg twice daily for 21 days. You may take ibuprofen and acetaminophen as needed for symptomatic relief. Call us or return to the clinic if your symptoms worsen or if you have any other concerns. Thank you for allowing us to participate in your care today. [email or web address] Not available 11/25/2018 15:45:36 Seen by Oren Adkins Ms4 and Dr. Alvarado Attending Note This patient was evaluated with medical student involvement and was directly interviewed and examined by me. I directly supervised all procedures performed and the interpretation of any radiographic, ecg or lab testing. I supervised and agree with the student physician notations included in the medical record [email or web address] Not available 11/25/2018 16:56:09 Reason for Referral None Reported. Results Created Date Observation Date Name Description Value Unit Range Abnormal Flag Note LastModifiedBy Organization Detail LastModifiedTime 11/26/19 19 11/28/2018 CBC w/ diff comment SEE BELOW NO TEST( S) INDIC ATED ON THE REQUI SITIO N FOR: SERUM SENT. IF YOU NEED A TEST PERFO RMED ON THIS SPECI MEN PLEMARY JO E CALL SPECI MEN PROCE SSING WITHI N 24 HOURS . OR YOU CAN RESPO ND BY KWAME ARANDA YOUR RESPO NSE ON THIS REPOR T AND FAX IT TO SPECI MEN PROCE SSING FAX NUMBE R: [phone]. SPECI MEN SUBMI SSION DATE: 11/26 Not Available [facility] [address] [place] [address], [id number], 12/01/2018 05:03:45 11/26/19 19 11/28/2018 CBC w/ diff WBC 3.1 thous /uL 4.0 - 10.0 low Not Available [facility] [address] [place] [address], [address], 12/01/2018 05:03:45 11/26/1911/28/2018 CBC w/ diff RBC 4.27 jasmine on/uL 4.2 - 5.4 Not Available [facility] [address] [place] [address], [address], 12/01/2018 05:03:45 11/26/1911/28/2018 CBC w/ diff hemoglobin 13.3 g/dL 12.0 - 16.0 Not Available [facility] [address] [place] [address], [address], 12/01/2018 05:03:45 11/26/1911/28/2018 CBC w/ diff HCT 42.9 % 37 - 47 Not Available [facility] [address] [place] [address], [address], 12/01/2018 05:03:45 11/26/1911/28/2018 CBC w/ diff MCV 100.5 fL 80 - 100 high Not Available [facility] [address] [place] [address], [address], 12/01/2018 05:03:45 11/26/1911/28/2018 CBC w/ diff MCH 31.1 pg 27 - 34 Not Available [facility] [address] [place] [address], [address], 12/01/2018 05:03:45 11/26/1911/28/2018 CBC w/ diff MCHC 31.0 g/dL 31 - 36 Not Available [facility] [address] [place] [address], [address], 12/01/2018 05:03:45 11/26/1911/28/2018 CBC w/ diff RDW-SD 56.9 fL 35 - 46 high Not Available [facility] [address] [place] [address], 25[address], 12/01/2018 05:03:45 11/26/1911/28/2018 CBC w/ diff platelet [id number] [id number] - [id number] Not Available [facility] [address] [place] [address], [address], 12/01/2018 05:03:45 11/26/1911/28/2018 CBC w/ diff absolute neutrophil count 2.07 thous /uL 2.0 - 8.0 Not Available [facility] [address] [place] [address], [address], 12/01/2018 05:03:45 11/26/1911/28/2018 CBC w/ diff neutrophils 65.9 % 40 - 70 Not Available [facility] [address] [place] [address], [address], 12/01/2018 05:03:45 11/26/1911/28/2018 CBC w/ diff lymphocytes 18.5 % 20 - 45 low Not Available [facility] [address] [place] [address], [address], 12/01/2018 05:03:45 11/26/1911/28/2018 CBC w/ diff monocytes 11.5 % 1 - 12 Not Available [facility] [address] [place] [address], [address], 12/01/2018 05:03:45 11/26/1911/28/2018 CBC w/ diff eosinophils 2.5 % 0 - [address] [facility] [address] [place] [address], [address], 12/01/2018 05:03:45 11/26/1911/28/2018 CBC w/ diff basophils 1.3 % 0 - 2 Not Available [facility] [address] [place] [address], [address], 12/01/2018 05:03:45 11/26/1911/28/2018 CBC w/ diff immature granulocytes 0.3 % 0 - 0.75 Not Available [address], [address], 12/01/2018 05:03:45 11/26/1912/01/2018 tick- borne disea se panel specimen type PLASMA Not Available [address], [address], 12/01/2018 05:03:45 11/26/1912/01/2018 tick- borne disea se panel test date 2018 Not Available [address], [address], 12/01/2018 05:03:45 11/26/1912/01/2018 tick- borne disea se panel babesia PCR NEGATI VE negati ve Not Available [facility] [address] [place] [address], [address], 12/01/2018 05:03:45 11/26/1912/01/2018 tick- borne disea se panel interpretati on Comme nt: B. micro ti DNA not detec jossue in whole blood . Inter preta tion: No molec ular evide nce of activ e B. micro ti infec tion. Not Available [facility] [address] [place] [address], [address], 12/01/2018 05:03:45 11/26/1912/01/2018 tick- borne disea se panel test date 2018 Not Available [facility] [address] [place] [address], [address], 12/01/2018 05:03:45 11/26/1912/01/2018 tick- borne disea se panel anaplasma (hga) PCR NEGATI VE negati ve Not Available [facility] [address] [place] [address], [address], 12/01/2018 05:03:45 11/26/1912/01/2018 tick- borne disea se panel interpretati on Comme nt: A. phago cytop hilum DNA not detec jossue in whole blood . Inter preta tion: No molec ular evide nce of activ e A. phago cytop hilum infec tion. Not Available [facility] [address] [place] [address], [address], 12/01/2018 05:03:45 11/26/1912/01/2018 tick- borne disea se panel test date 2018 Not Available [facility] [address] [place] [address], [address], 12/01/2018 05:03:45 11/26/1912/01/2018 tick- borne disea se panel ehrlichia chaff by PCR NEGATI VE negati ve Not Available [facility] [address] [place] [address], [address], 12/01/2018 05:03:45 11/26/1912/01/2018 tick- borne disea se panel test date 2018 Not Available [facility] [address] [place] [address], [address], 12/01/2018 05:03:45 11/26/1912/01/2018 tick- borne disea se panel lyme antibody capture IgM <1 <1 Not Available [facility] [address] [place] [address], [address], 12/01/2018 05:03:45 11/26/1912/01/2018 tick- borne disea se panel lyme antibody capture IgG <1 <1 Not Available [facility] [address] [place] [address], [address], 12/01/2018 05:03:45 11/26/19 19 12/01/2018 tick- borne disea se panel lyme antibody capture IgA <1 <1 Not Available [facility] [address] [place] [address], [address], 12/01/2018 05:03:45 11/26/1912/01/2018 tick- borne disea se panel interpreatio n Comme nt: No IgM, IgG, or IgA antib jaron to B. burgd orfer i detec jossue. Inter preta tion: No serol ogic evide nce of early infec tion with B. burgd orfer i (Lyme ). Perfo rmed At: [facility] [address] [facility] , [place] [address] ISELA CHRISTENSEN MD, PHD - [facility] INQUI FILEMON? [phone] Not Available [facility] [address] [place] [address], [address], 12/01/2018 05:03:45 Result Notes None recorded. Medical Equipment None Reported. Allergies Allergen ID Allergen Name Allergen Category Reaction Reaction Severity Criticality Documentation Date Start Date Code Code System Note Provider Name and Address Organization Details Recorded Time 1741 Levaquin medicatio n Not available Not available Not available 11/25/2018 38661 2 RxNorm Marylin ellis [facility] 9 15:11:52 1742 Product containin g penicilli n and antibioti c (product) medicatio n Not available Not available Not available 11/25/2018 98050 [facility] 15:12[facility]02 1743 tetracycl ine medicatio n Not available Not available Not available 11/25/2018 66144 RxNorm Marylin Garcia [facility] 9 15:12:13 1744 erythromy ade medicatio n Not available Not available Not available 11/25/2018 4053 [facility] 15:12:43 Medications Name Sig Start Date Stop Date Status Note LastModified by Organization Details LastModified Time amlodipine 5 mg tablet Take 1 tablet every day by oral route. active Not Available Not Available No t Available doxycycline hyclate 100 mg tablet Take 1 tablet twice a day by oral route for 21 days. 019 active Not Available Not Available Not Avai lable Vitals Date Recorded Body height Heart rate Respiratory rate Body temperature Body mass index (BMI) Body weight Systolic blood pressure Diastolic blood pressure Provider Name and Address Organization Details Last Updated DateTime 9 162.56 cm 68 /min 16 /min 97.4 [degF] 22.3 kg/m2 47622.0 1 g 160 mm[Hg] 84 mm[Hg] Marylin Garcia [facility] 9 15:15:57 Social History None recorded. Functional Status None recorded. Mental Status None recorded. Family History Nothing Reported. Medical History No medical history recorded. Gynecological HistoryNo gynecological history recorded. Obstetrics History GPAL:G 0 P 0 0 0 0 Past Encounters Encounter ID Performer Location Encounter Start Date Encounter Closed Date Diagnosis/Indication Diagnosis SNOMED-CT Code Diagnosis ICD10 Code Diagnosis Note [id number] Fabrice Alvarado Main Office [address] [place] [address] 11/25/2018 14:39:48 11/25/2018 16:04:16 Suspected Lyme disease 982256027 Z03.89 3 days of fatigue, 2 days of targetoid rash, myalgias, and arthralgia s. Exam notable for lack of fever and targetoid rash on R shoulder. Most c/w acute lyme disease. Less likely anaplasma or ehrlichia, less likely influenza given lack of fever, no sore throat, and no sick contacts. -send tick panel -treat with 21 days of doxycyclin e 100 mg BID -will call pt with results of tick panel -provided instructio ns to return if sx worsen -recommend ed ibuprofen/ acetaminop hen for pain relief Muscle pain 69770358 M79 .10 Health Concerns Section Related Observation LastModified by Organization Detai ls LastModified Time None Recorded Concern Status LastModified by Organization Details LastModified Time None Recorded Advance Directives Directive None Recorded Payers Encounter Date Sequence Insurance Name Policy Number Policy Ramirez Covered Member ID Ramirez Member ID Guarantor Name 11/25/2018 1 [place] [employer] [place] [id number] Robyn Pierce [id number] Earl Pierce Notes Date Note Type Note Provider Name and Address Organization Details Recorded Time 11/25/2018 text/html Ms. Pierce is a 62 y/o F who presents to the clinic with 3 days of fatigue and 2 days of a target-shaped rash on her R shoulder, muscle aches in her neck and shoulder muscles, frontal headache, and pain in her bilateral wrists. She applied topical benadryl spray to the rash without any change. She had lyme disease 4-5 years ago, and feels that current symptoms resemble the beginning of her prior disease course[place]. Denies any witnessed tick bites, fever, chills, nausea, vomiting, or focal weakness. Allergies penicillin - tongue swelling erythromycin(rash)l evofloxacin (rash) tetracyclines (rash) HOWEVER pt has had doxycycline twice before without issue Fabrice ellis, [facility] 11/25/2018 16:56:27 OBGyn Episode No OBEpisode recorded.
== END ==
LOC: HO.NUCMED 08:04
DX: K80.20 Calculus of gallbladder without cholecystitis without obstruction (principal)

== ENCOUNTER → 2024-07-03 08:06 | Outpatient (BNV) | payer MEDICARE, SELFPAY | PROVIDERS: PCP Internal Medicine; Visit Provider Radiology Diagnostic Radiology | DX: K80.20 Calculus of gallbladder without cholecystitis without obstruction (principal) | CPT/HCPCS: 78226 ==